=== PATIENT | male | born 1960 | race Caucasian/White ===

== ENCOUNTER 2020-06-20 13:57 | Outpatient (CLI) | payer MEDICAID ==
[2020-06-20] MEDS ORDERED: SIMV-45 PO (14:28)
[2020-06-20] MEDS ORDERED: LISI20TA28 PO (14:28)
[2020-06-20] MEDS ORDERED: CITA20TA28 PO (14:28)
[2020-06-20 14:59] LABS: BASOPHILS # (AUTO) 0.1 X10'3 (0-0.2); BASOPHILS % (AUTO) 0.9 % (0-1); EOSINOPHILS # (AUTO) 0.2 X10'3 (0-0.9); EOSINOPHILS % (AUTO) 2.4 % (0-6); LYMPHOCYTES # (AUTO) 1.2 X10'3 (1.1-4.8); LYMPHOCYTES % (AUTO) 18.9 % (21-51); MEAN CORPUSCULAR HEMOGLOBIN 28.1 PG (27.0-31.0); MEAN CORPUSCULAR HGB CONC 32.8 g/dL (33.0-36.5); MEAN CORPUSCULAR VOLUME 85.6 FL (78-98); MEAN PLATELET VOLUME 8.2 FL (7.4-10.4); MONOCYTES # (AUTO) 0.4 X10'3 (0-0.9); MONOCYTES % (AUTO) 6.6 % (2-12); NEUTROPHILS # (AUTO) 4.6 X10'3 (1.8-7.7); NEUTROPHILS % (AUTO) 71.2 % (42-75); PRE OP HEMATOCRIT 42.6 % (42.0-52.0); PRE OP PLATELET COUNT 262 X10'3 (140-440); RED BLOOD COUNT 4.97 X10'6 (4.70-6.10); RED CELL DISTRIBUTION WIDTH 14.3 % (11.5-14.5)
[2020-06-20 15:13] LABS: ALBUMIN/GLOBULIN RATIO 1.2 (1.1-1.5); ALKALINE PHOSPHATASE 65 IU/L (46-116); BLOOD UREA NITROGEN 19 MG/DL (7-18); BUN/CREATININE RATIO 21.8 (5.4-32.0); CALCIUM 8.9 MG/DL (8.5-10.1); CHLORIDE 106 MMOL/L (99-107); CREATININE 0.87 MG/DL (0.60-1.10); PRE OP ALT 35 U/L (30-65); PRE OP ANION GAP 10 (8-16); PRE OP AST 29 U/L (10-37); PRE OP BILIRUB, TOTAL 0.4 MG/DL (0.0-1.0); PRE OP GLUCOSE 110 MG/DL (70-104); PRE OP POTASSIUM 3.8 MMOL/L (3.4-5.1); PRE OP SODIUM 142 MMOL/L (135-145); TOTAL CARBON DIOXIDE 26.3 MMOL/L (24-32); TOTAL PROTEIN 7.3 G/DL (6.4-8.2); eGFR 90 ML/MIN
== END 2020-06-20 23:59 | disposition home or self-care (01) ==
LOC: PRE-OP 13:57 → EDSTATUS 06-27 07:30
PROVIDERS: ATTEND Surgery
DX: Z53.09 Procedure and treatment not carried out because of other contraindication (principal); K43.9 Ventral hernia without obstruction or gangrene
CPT/HCPCS: 36415; 80053; 85025; 87635; 93005

== ENCOUNTER 2023-12-26 14:22 | Inpatient (IN) | payer MEDICAID ==
[~2023-12-26] VITALS: Ht 175.3 cm; Wt 220.0 kg
[~2023-12-26 14:22] MED LIST: CITA20TA28 PO; LISI20TA28 PO; SIMV-45 PO
[2023-12-26 15:13] LABS: EOSINOPHILS # (AUTO) 0.2 X10'3 (0-0.9); HEMOGLOBIN 13.8 g/dl (14.0-17.9); WHITE BLOOD COUNT 7.5 X10'3 (4.5-11.0)
[2023-12-26 15:15] LABS: BASOPHILS # (AUTO) 0.1 X10'3 (0-0.2); BASOPHILS % (AUTO) 0.8 % (0-1); EOSINOPHILS % (AUTO) 3.3 % (0-6); HEMATOCRIT 40.5 % (42.0-52.0); LYMPHOCYTES # (AUTO) 1.1 X10'3 (1.1-4.8); LYMPHOCYTES % (AUTO) 15.1 % (21-51); MEAN CORPUSCULAR VOLUME 85.3 FL (78-98); MEAN PLATELET VOLUME 7.6 FL (7.4-10.4); MONOCYTES # (AUTO) 0.7 X10'3 (0-0.9); MONOCYTES % (AUTO) 8.8 % (2-12); NEUTROPHILS # (AUTO) 5.4 X10'3 (1.8-7.7); PLATELET COUNT 285 X10'3 (140-440); RED BLOOD COUNT 4.75 X10'6 (4.70-6.10)
[2023-12-26 15:18] LABS: ALBUMIN 3.6 G/DL (3.4-5.0); ANION GAP 9 (8-16); BLOOD UREA NITROGEN 20 MG/DL (7-18); BUN/CREATININE RATIO 22.5 (10.0-20.0); CALCIUM 8.2 MG/DL (8.5-10.1); CHLORIDE 105 MMOL/L (99-107); CREATININE 0.89 MG/DL (0.60-1.10); GLUCOSE 111 MG/DL (70-104); POTASSIUM 3.5 MMOL/L (3.5-5.1); SODIUM 141 MMOL/L (135-145); eCRCL 87 ML/MIN; eGFR 87 ML/MIN
[2023-12-26 15:21] LABS: APTT 26 SECONDS (22-32); PROTHROMBIN TIME 10.3 SECONDS (9.0-12.0)
[2023-12-26] MEDS ORDERED: potassium Cl 40MEQ/1/2NS 520ml 520 ML IV PRN (16:35)
[2023-12-26] MEDS ORDERED: potassium Cl 20 mEq SR tablet PO PRN (16:35)
[2023-12-26] MEDS ORDERED: magnesium sulf-water 2g/50mL 50 ML IV PRN (16:35)
[2023-12-26] MEDS ORDERED: mag hydrox/Alum hydrox/simeth 30ml oral suspension PO PRN (16:35)
[2023-12-26] MEDS ORDERED: magnesium Cl slow-release 64mg tablet PO PRN (16:35)
[2023-12-26] MEDS ORDERED: ondansetron/PF 4mg/2ml inj IV PRN (16:35)
[2023-12-26] MEDS ORDERED: magnesium hydroxide 30ml (MOM) UD suspension PO PRN (16:35)
[2023-12-26] MEDS ORDERED: acetaminophen 325mg tablet PO PRN (16:35)
[2023-12-26] MEDS ORDERED: magnesium sulf-water 4G/100mL 100 ML IV PRN (16:35)
[2023-12-26] MEDS: aspirin 81mg tab.chew PO SCH (16:45)
[2023-12-26] MEDS ORDERED: iohexol 350MG/ML 100ml bottle IV ONE (16:54)
[2023-12-26 16:58] LABS: HEMOGLOBIN A1C 5.9 % (4.5-6.2)
[2023-12-26] MEDS: PERFLUTREN PROTEIN-A MICROSPHR (Optison) 0.22 MG/ML 3ML VIAL IV ONE (17:29)
[2023-12-26] MEDS: clopidogrel 75mg tablet PO SCH (17:36)
[2023-12-26] MEDS: aspirin 325mg tablet PO ONE (17:36)
[2023-12-26] MEDS: atorvastatin 20mg tablet PO SCH (17:37)
[2023-12-26 20:00] VITALS: BP 142/73; PULSE 51; RESP 16; TEMP 98.6; O2SAT 95
[2023-12-26] MEDS: K and/or MAG REPLACEMENT MC SCH (20:00)
[2023-12-26] MEDS: docusate sod 100mg capsule PO SCH (20:00)
[2023-12-26] MEDS ORDERED: AMLO10TA13 PO (22:38)
[2023-12-26] MEDS ORDERED: HYDR50TA4 PO (22:38)
[2023-12-26] MEDS ORDERED: LOSA50TA64 PO (22:38)
[2023-12-26] MEDS ORDERED: MELO-102 PO (22:38)
[2023-12-26] MEDS ORDERED: CITA40TA17 PO (22:38)
[2023-12-27] VITALS: BP 169/67; PULSE 48; RESP 16; TEMP 98.1; O2SAT 96
[2023-12-27 04:00] VITALS: BP 149/61; PULSE 56; RESP 16; TEMP 97.6; O2SAT 94
[2023-12-27 06:51] LABS: BASOPHILS # (AUTO) 0.1 X10'3 (0-0.2); BASOPHILS % (AUTO) 0.8 % (0-1); EOSINOPHILS # (AUTO) 0.2 X10'3 (0-0.9); EOSINOPHILS % (AUTO) 3.4 % (0-6); HEMATOCRIT 41.3 % (42.0-52.0); MEAN CORPUSCULAR HEMOGLOBIN 28.4 PG (27.0-31.0); MEAN CORPUSCULAR HGB CONC 33.9 g/dL (33.0-36.5); MEAN CORPUSCULAR VOLUME 83.8 FL (78-98); MEAN PLATELET VOLUME 7.7 FL (7.4-10.4); MONOCYTES # (AUTO) 0.6 X10'3 (0-0.9); MONOCYTES % (AUTO) 9.1 % (2-12); NEUTROPHILS # (AUTO) 4.5 X10'3 (1.8-7.7); NEUTROPHILS % (AUTO) 70.7 % (42-75); PLATELET COUNT 264 X10'3 (140-440); RED BLOOD COUNT 4.93 X10'6 (4.70-6.10); RED CELL DISTRIBUTION WIDTH 14.4 % (11.5-14.5); WHITE BLOOD COUNT 6.4 X10'3 (4.5-11.0)
[2023-12-27] MEDS: enoxaparin 40mg/0.4ml syringe SUBCUT SCH (07:30)
[2023-12-27 07:40] LABS: ALANINE AMINOTRANSFERASE 30 U/L (12-78); ALBUMIN 3.5 G/DL (3.4-5.0); ALBUMIN/GLOBULIN RATIO 1.2 (1.1-1.5); ALKALINE PHOSPHATASE 50 IU/L (46-116); ANION GAP 7 (8-16); ASPARTATE AMINO TRANSFERASE 21 U/L (10-37); BILIRUBIN,TOTAL 0.6 MG/DL (0.1-1.0); BLOOD UREA NITROGEN 12 MG/DL (7-18); BUN/CREATININE RATIO 17.4 (10.0-20.0); CALCIUM 8.1 MG/DL (8.5-10.1); CHLORIDE 104 MMOL/L (99-107); CHOL/HDL RATIO 3.7 (0.00-4.99); CHOLESTEROL 168 MG/DL (0-200); CREATININE 0.69 MG/DL (0.60-1.10); GLUCOSE 115 MG/DL (70-104); HDL CHOLESTEROL 46 MG/DL (35-60); LDL CHOLESTEROL 88 MG/DL (50-100); POTASSIUM 3.4 MMOL/L (3.5-5.1); SODIUM 140 MMOL/L (135-145); TOTAL CARBON DIOXIDE 28.9 MMOL/L (24-32); TOTAL PROTEIN 6.5 G/DL (6.4-8.2); TRIGLYCERIDES 108 MG/DL (20-135); eCRCL 112 ML/MIN; eGFR > 90 ML/MIN
[2023-12-27 08:00] VITALS: RESP 16; O2SAT 95
[2023-12-27] MEDS: potassium Cl 20 mEq SR tablet PO PRN (10:34)
[2023-12-27 12:10] VITALS: BP 179/71; PULSE 59; RESP 18; TEMP 97.6; O2SAT 95
[2023-12-27 12:19] VITALS: BP 165/78
[2023-12-27] MEDS ORDERED: ASPI-1265 PO (13:11)
[2023-12-27] MEDS ORDERED: CLOP75TA34 PO (13:11)
[2023-12-27] MEDS ORDERED: ATOR20TA66 PO (13:11)
== END 2023-12-27 15:15 | disposition home or self-care (01) | DRG 47 ==
LOC: ER 14:22 → ED HOLD 16:40 → ORTHO 4S 19:42
PROVIDERS: ADMIT Family Medicine; ATTEND Family Medicine
PROC: B3251ZZ Computerized Tomography (CT Scan) of Bilateral Common Carotid Arteries using Low Osmolar Contrast (ICD-10-PCS; principal; 2023-12-26)
PROC: B32G1ZZ Computerized Tomography (CT Scan) of Bilateral Vertebral Arteries using Low Osmolar Contrast (ICD-10-PCS; 2023-12-26)
PROC: B32R1ZZ Computerized Tomography (CT Scan) of Intracranial Arteries using Low Osmolar Contrast (ICD-10-PCS; 2023-12-26)
PROC: B3281ZZ Computerized Tomography (CT Scan) of Bilateral Internal Carotid Arteries using Low Osmolar Contrast (ICD-10-PCS; 2023-12-26)
DX: G45.9 Transient cerebral ischemic attack, unspecified (principal); E11.9 Type 2 diabetes mellitus without complications; E78.00 Pure hypercholesterolemia, unspecified; I10 Essential (primary) hypertension; Z79.899 Other long term (current) drug therapy; Z86.73 Personal history of transient ischemic attack (TIA), and cerebral infarction without residual deficits
CPT/HCPCS: 36415; 70450; 70496; 70498; 70551; 71045; 80048; 80053; 80061; 82948; 83036; 83880; 85025; 85610; 85730; 87081; 93005; 93306; 93880; 97116; 97161; 97530; 99285; G0378; J1650; Q9967